=== PATIENT | male | born 1955 | race Caucasian/White ===

== ENCOUNTER 2023-07-06 12:53 | Outpatient (CLI) | payer MEDICARE, SELFPAY ==
--- NOTE | ~2023-07-06 | XR_ITS ---
Right Shoulder Technique: AP and scapular Y, and axillary views were obtained. Clinical History: Limited range of motion Findings: No fracture or dislocation is seen. Osseous alignment is anatomic. The glenohumeral and acr omioclavicular joint spaces are preserved. Soft tissues are unremarkable. Impression: Unremarkable right shoulder radiographs. Reviewed, dictated and finalized at location . PPER OPAQUER Impression: Unremarkable right shoulder radiographs.
--- NOTE | ~2023-07-06 | XR_ITS ---
Left Shoulder Technique: AP and scapular Y, and axillary views were obtained. Clinical History: Limited range of motion Findings: No fracture or dislocation is seen. Osseous alignment is anatomic. The glenohumeral and acr omioclavicular joint spaces are preserved. Soft tissues are unremarkable. Impression: Unremarkable left shoulder radiographs. Reviewed, dictated and finalized at location . L MAID Impression: Unremarkable left shoulder radiographs.
== END 2023-07-06 12:54 | disposition home or self-care (01) ==
PROVIDERS: PCP Family Medicine; Visit Provider Orthopaedic Surgery
DX: M25.511 Pain in right shoulder (principal); M25.512 Pain in left shoulder
CPT/HCPCS: 73030

== ENCOUNTER → 2023-07-25 10:21 | Outpatient (CLI) | payer MEDICARE, SELFPAY ==
--- NOTE | ~2023-07-25 | MR_ITS ---
MRI of the left shoulder Technique: Axial proton-density fat-sat images, coronal proton density fat-sat and T2 fat-sat images, and sagittal T1-weighted and T2 fat-sat images were acquired. Clinical History: Pain FINDINGS: There is moderate to severe AC joint degenerative change. Subacromial spur is present. Petra coclavicular, coracoacromial, coracohumeral ligaments are intact. There is complete, full-thickness tear of the supraspinatus tendon, which is retracted to the level o f glenoid. Fluid-filled gap measures 4.6 x 2.6 cm. Infraspinatus tendon is intact. Subscapularis tend on is intact with moderate to severe tendinosis. Tendon of long head of the biceps is intact. Suspected superior labral tear extending to the anterosuperior/anterior portions. Inferior glenohumeral ligament is intact. There is a small glenohumeral joint effusion with fluid pas sing through the defect into the subacromial/subdeltoid bursa. No muscle atrophy or edema. Impression: Complete, full-thickness tear of the supraspinatus tendon, as detailed above. Suspected superior labral tear extending to the anterosuperior/anterior portions. Moderate to severe AC joint degenerative change. Reviewed, dictated and finalized at location . R JET LOOM FIXER Impression: Complete, full-thickness tear of the supraspinatus tendon, as detailed above. Suspected superior labral tear extending to the anterosuperior/anterior portion s. Moderate to severe AC joint degenerative change.
== END ==
PROVIDERS: PCP Family Medicine; Visit Provider Physician Assistant Surgical
DX: M75.122 Complete rotator cuff tear or rupture of left shoulder, not specified as traumatic (principal); M19.012 Primary osteoarthritis, left shoulder
CPT/HCPCS: 73221

== ENCOUNTER 2025-02-08 11:51 | Emergency (ER) | payer OTHER, SELFPAY ==
--- OUTSIDE RECORDS SUMMARY | 2025-02-08 11:53 | XMS_ITS | Encounter Summary ---
Author Organization [facility] Address [address] [place] [address] Care Team Providers Care Photographer Apprentice Name Role Phone Unavailable Primary Care Provider Unavailabl e Encounter Details Date Type Department Care Team (Late st Contact Info) Description 08/09/2004 Outpatient Historical [facility] [id number] [facility] [address] [place] [address] Kunal Hardwick MD [address] 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
--- OUTSIDE RECORDS SUMMARY | 2025-02-08 11:53 | XMS_ITS | Clinical Summary ---
Author Organization [facility] Address [address] [place] [address] Care Team Providers Care Real Property Evaluator Name Role Phone Chema Hernandez MD Primary Care Provider [phone] Allergies No known active allergies Medications omeprazole DR 20 MG Tablet Delayed Release Dispersible dispersible tablet Active polyethylene glycol-electroly omero (NULYTELY) 420 g solution TAKE 4000 MLS BY MOUTH ONCE FOR 1 DOSE 11/20/2023 Active azithromycin (ZITHROMAX) 250 MG tabletIndication s:Non-recurrent acute serous otitis media of both ears Take 2 tablets by mouth on day one then 1 daily for four days. 6 tablet 09/09/2024 Active Active Problems Problem Noted Date Diagnosed Date Dysphagia, unspecified type 10/05/2023 GERD (gastroesophageal reflux disease) Resolved Problems Problem Noted Date Diagnosed Date Resolved Date Encounter for screening colonoscopy 10/05/2023 10/15/2023 Encounter for screening colonoscopy 10/05/2023 11/26/2023 Immunizations Immunization Administration Dates Next Due MODERNA COVID-19 (12+) MRNA, LNP-S, PF, 100 MCG/ 0.5 ML DOSE 01/05/2021,12/08/2020 Family History Medical History Relation Comments Cancer Brother Heart Disease Father Cancer Maternal Grandfather Cancer Maternal Grandmother Relation Status Comments Brother Father Maternal Grandfather Maternal Grandmother Mother Alive Social History Tobacco Use Types Packs/Day Years Used Date Smoking Tobacco: Former Cigarettes Q uit: 1983 Smokeless Tobacco: Never Tobacco Cessation:Counseling Given: No Alcohol Use Standard Drinks/Week Comments Yes 0 (1 standard drink = 0.6 oz pur e alcohol) occaisionally PHQ-2 Answer Date Recorded Patient Health Questionnaire-2 Score 0 09/09/2024 Sex and Gender Information Value Date Recorded Sex Assigned at Male 09/09/2024 2:38 PM INFORMATION SYSTEMS ARCHITECT Legal Sex Male 7:30 PM CDT Gender Identity Male 09/09/2024 2:52 PM INFORMATION SYSTEMS ARCHITECT Sexual Orientation Not on file Last Filed Vital Signs Vital Sign Reading Time Taken Comments Blood Pressure 179/96 09/09/2024 2:53 PM INFORMATION SYSTEMS ARCHITECT Pulse 68 09/09/2024 2:49 PM INFORMATION SYSTEMS ARCHITECT Temperature 36.7 C (98.1 F) 09/09/2024 2:49 PM INFORMATION SYSTEMS ARCHITECT Respiratory Rate 16 09/09/2024 2:49 PM INFORMATION SYSTEMS ARCHITECT Oxygen Saturation 99% 09/09/2024 2:49 PM INFORMATION SYSTEMS ARCHITECT Inhaled Oxygen Concentration - - Weight 81.6 kg (180 lb) 09/09/2024 2:49 PM INFORMATION SYSTEMS ARCHITECT Height 177.8 cm (5' 10) 09/09/2024 2:49 PM INFORMATION SYSTEMS ARCHITECT Body Mass Index 25.83 09/09/2024 2:49 PM INFORMATION SYSTEMS ARCHITECT Plan of Treatment Health Maintenance Due Date Last Done Comments Hepatitis C 1973 DTaP, Tdap and Td Vaccines ( 1 - Tdap) 1974 Pneumococcal Vaccine: 50+ Years (1 of 1 - PCV) 2005 Zoster Vaccines (1 of 2) 2005 AAA SCREENING 2020 Annual Medicare Wellness Visit 2020 COVID-19 Vaccine (3 - 2023-2 5 season) 2024 01/05/2021, 12/08/2020 RSV Immunization or 60+ Years (1 - 1-dose 75+ series) 2030 Colorectal Cancer Screening Colonoscopy (10 Years) 11/22/2033 11/23/2023 PHQ-2 (Physician [place]) Completed 09/09/2024 Meningococcal B Vaccine Aged Out No l onger eligible based on patient's age to complete this topic Meningococcal Vaccine Aged Out No kendall pily eligible based on patient's age to complete this topic RSV Immunizations Under 20 Months Aged Out No longer eligible b ased on patient's age to complete this topic Insurance ESSENCE Care Teams Real Property Evaluator Relationship Specialty [place] [id number] [place] [address] PCP - General FAMILY PRACTICE 02/02/22
--- OUTSIDE RECORDS SUMMARY | 2025-02-08 11:53 | XMS_ITS | Clinical Summary ---
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
--- OUTSIDE RECORDS SUMMARY | 2025-02-08 11:53 | XMS_ITS | Encounter Summary ---
Author Organization [facility] Address [address] [place] [address] Care Team Providers Care Cat Scan Tech Name Role Phone Unavailable Primary Care Provider Unavailabl e Encounter Details Date Type Department Care Team (Late st Contact Info) Description 08/02/2004 Outpatient Historical [facility] [address] [facility] [address] [place] [address] Kunal Hardwick MD [address] 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
--- NOTE | 2025-02-08 11:54 | ED_ITS ---
HPI - Skin/Abscess/Foreign Bdy General Chief complaint: Skin/Abscess/Foreign Body Stated complaint: insect bite Time Seen by Provider: 02/08/25 11:54 patient presents to the [facility] with complaints of might or sting to the back of right shoulder that have been to 2 days ago. Patient noted the area significantly sore and itchy. Patient did note yesterday did not feel well with fatigue, chills, feeling feverish, and significant joint pain. Patient reports this is better today but still present. No medication or remedies attempted for symptoms. Related Data Home Medications ?Medication ?Instructions ?Recorded ?Confirmed ?Last Taken ?Type omeprazole 20 mg capsule,delayed 20 mg PO DAILY 07/06/23 09/28/23 Unknown History release Allergies Allergy/AdvReac Type Severity Reaction Status Date / Time No Known Allergies Allergy Verified 02/08/25 12:05 Review of Systems Constitutional: Constitutional: Reports as per HPI, Reports chills, Reports fatigue, Reports fever(s) and Denies weakness Eyes: Eyes: Reports no additional eye complaints ENT: Reports system reviewed and no additional complaints, except as documented Cardiovascular: Cardiovascular: Reports no additional cardiovascular complaints Respiratory: Respiratory: Reports no additional respiratory complaints Gastrointestinal: Gastrointestinal: Reports no additional gastrointestinal complaints Genitourinary: Genitourinary: Reports no additional male genitourinary complaints Musculoskeletal: Musculoskeletal: Reports as per HPI, Reports myalgias, Reports arthralgias and Reports joint swelling Integumentary/Breasts: Skin/Breast: Reports as per HPI, Reports pruritus and Reports erythema Comments: bite/sting right shoulder Neurologic: Reports as per HPI, Denies numbness and Denies weakness Psychiatric: Psychiatric: Reports no additional psychiatric complaints Endocrine: Endocrine: Reports no additional endocrine complaints Hematologic/Lymphatic: Hematologic/Lymphatic: Reports no additional hematologic/lymphatic complaints Allergic/Immunologic: Allergic/Immunologic: Reports no additional allergic/immunologic complaints REPLACED BY [facility] Past Medical History Medical History GERD (gastroesophageal reflux disease) Surgical History Surgical History History of appendectomy History of cataract surgery Bilateral Family History Family History Father Heart disease Unknown Cancer Social History Social History Smoking status: Never smoker Alcohol intake: current Do You Feel Safe in your Home?: Yes Lack of Transportation: No Lack of Food: Never True Current Housing: I Have Housing Concerned About Future Housing: No Difficulty Paying Gas/Electric Bills: No Difficulty Paying for Meds: No Currently Unemployed: No Education: High School Diploma/GED Difficulty w/ Childcare or Family Care: No Exam Const: General: healthy appearing and no acute distress Nutritional Appearance: well nourished Orientation/consciousness: patient oriented x3 Limitations: no limitations Neck: Neck: no lymphadenopathy Resp: Effort & Inspection: normal respiratory effort Auscultation: clear to auscultation bilaterally Cardio: Rate: regular rate Rhythm: regular rhythm Skin: General skin exam: normal color Rashes: no rashes Other: Circular area erythema with center scabbed/ puncture consistent with insect bite/sting. Minimal warmth and swelling noted. Neuro: General: patient oriented x3 and moves all extremities Speech: normal speech Gait exam (Neuro): Normal gait present Extrem: General: normal to inspection, no clubbing, cyanosis or edema, no pedal edema and no edema Psych: Mental Status: mental status grossly normal Affect: normal affect Attitude: cooperative Course Course Level of Care: Express Care Visit MDM - Skin/Abscess/Foreign Bdy MDM Narrative Medical decision making narrative: Overall bite/ sting does not look significantly bad be given other symptoms related to this will place patient on antibiotics with antihistamines and topical steroids. Discharge instructions reviewed with patient, as well as provided in writing per nursing staff. The instructions also include specific and strict return/GO TO THE ER as well as f/u information. All questions have been answered, and the patient deny any further questions with discharge and discharge plan. Differential Diagnosis Differential diagnosis: Likely viral exanthem, cellulitis, insect bites, impetigo and contact dermatitis Medical Records Attestation: I reviewed the patient's medical records. Discharge Plan Discharge Clinical Impression: Insect bite (nonvenomous) of right shoulder, initial encounter, Infection of skin and subcutaneous tissue Patient Disposition: Home Condition: Stable Instructions: Antibiotic Form, Cellulitis (ED), Insect Bite or Sting (ED) Additional Instructions: Clean with soap and water only; Avoid using alcohol and peroxide. Elevate the affected area if possible Alternate Tylenol/ibuprofen for as needed for pain Acetaminophen(Tylenol) 650- 1000mg every 4-6hours with max of 4000mg/day. Nonsteroidal anti-inflammatory agent (NSAIDs-ibuprofen): 400mg every 4-6hours with max 2400mg/day Take antibiotic until it's gone. Please schedule a follow up visit with your personal physician for further evaluation and treatment within 3-5days OR if your symptoms persist, change or worsen significantly before you can contact your personal physician then please, without delay, go to the emergency department for further evaluation. Patient Language: Korean Prescriptions: New cephalexin 500 mg capsule 500 mg PO Q12H Qty: 20 0RF triamcinolone acetonide 0.1 % cream 1 applic topical TID Qty: 30 0RF No Action omeprazole 20 mg capsule,delayed release(DR/EC) 20 mg PO DAILY Follow-up/Referrals: Francis Gibbons RN [Primary Care Provider] - Time of Disposition: 12:09
[2025-02-08 12:00] VITALS: BP 152/66; PULSE 84; RESP 18; TEMP 37.2; O2SAT 99
== END 2025-02-08 12:11 | disposition home or self-care (01) ==
PROVIDERS: Emergency Provider Nurse Practitioner Family
DX: S40.261A Insect bite (nonvenomous) of right shoulder, initial encounter (principal); W57.XXXA Bitten or stung by nonvenomous insect and other nonvenomous arthropods, initial encounter; K21.9 Gastro-esophageal reflux disease without esophagitis
CPT/HCPCS: 99213; G0463